=== PATIENT | female | born 1985 | race Caucasian/White ===

== ENCOUNTER 2016-11-26 09:21 | Emergency (ER) | payer OTHER ==
[~2016-11-26] VITALS: Ht 167.6 cm; Wt 70.0 kg
[2016-11-26 09:23] VITALS: BP 128/76; PULSE 85; TEMP 99.2; O2SAT 96
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
--- NOTE | 2016-11-26 11:11 | PD ---
Physical Exam Narrative I repaired the laceration to the left lateral aspect of the upper lip and chin. Data Data Last Documented VS Vital Signs Date Time Temp Pulse Resp B/P Pulse Ox O2 Delivery O2 Flow Rate FiO2 11/26/16 10:15 98 Room Air 11/26/16 09:23 99.2 85 128/[address] Facial Bones W/O Iv Cont (11/26/16 ) Wound Care (11/26/16 09:59) MDM Supervised Visit with KACY: Yes Narrative Course I repaired the laceration to the left lateral aspect of the upper lip and chin. See my procedure note. Procedures Procedure Narrative LACERATION LOCATION: Left lateral aspect of the upper lip LENGTH: 1 cm NUMBER OF STITCHES/LISA: 2 simple interrupted stitches REPAIR: The area of the laceration was prepped with Betadine and sterilely draped. The laceration was infiltrated with 1% lidocaine. The wound was copiously irrigated and explored without evidence of foreign body, tendon injury or neurovascular injury. The wound was closed using 4-0 chromic gut. This was a single layer repair. A sterile dressing was applied. The patient was advised to keep the dressing clean and dry. Patient tolerated the procedure well. LACERATION LOCATION: Chin LENGTH: 0.5 cm NUMBER OF STITCHES/LISA: Closed using Dermabond REPAIR: The area of the laceration was cleaned with normal saline. The wound was copiously irrigated and explored without evidence of foreign body, tendon injury or neurovascular injury. The wound was closed using Dermabond. This was a single layer repair. The patient was advised to keep the dressing clean and dry. Patient tolerated the procedure well. Patient Instructions: General Instructions Condition: Stable Sonal Gómez Nov 26, 2016 11:11
[2016-11-26 11:28] VITALS: BP 121/72; PULSE 80; RESP 16; O2SAT 99
[2016-11-26] MEDS ORDERED: IBUP-232 PO (11:47)
[2016-11-26] MEDS ORDERED: PENI500T PO (11:47)
[2016-11-26] MEDS ORDERED: IBUPROFEN 800 MG TAB PO ONE (12:00)
== END 2016-11-26 12:10 | disposition home or self-care (01) ==
LOC: NEPD 09:21
DX: S01.511A Laceration without foreign body of lip, initial encounter (principal); S00.83XA Contusion of other part of head, initial encounter; V43.62XA Car passenger injured in collision with other type car in traffic accident, initial encounter; Y93.89 Activity, other specified; Y92.410 Unspecified street and highway as the place of occurrence of the external cause; Y99.8 Other external cause status
CPT/HCPCS: 70486; 99285